=== PATIENT | female | born 1955 | race Caucasian/White ===

== ENCOUNTER 2020-04-27 17:03 | Inpatient (IN) | payer OTHER ==
[2020-04-27] MEDS ORDERED: ACETAMINOPHEN 1000 MG/100 ML VIAL (NON FORMULARY) IVPB ONE (19:48)
[2020-04-27] MEDS ORDERED: FAMOTIDINE 20 MG/50 ML IVPB 20 MG/50 ML MG IVPB ONE ×2 (19:48→20:32)
[2020-04-27] MEDS ORDERED: MAG HYDROX/AL HYDROX/SIMETH 30 ML UNIT-DOSE CUP PO ONE (19:48)
[2020-04-27] MEDS ORDERED: ONDANSETRON 4 MG/2 ML VIAL IVPUSH ONE (19:48)
[2020-04-27] MEDS ORDERED: DEXAMETHASONE SOD PHOSPHATE 4 MG/1 ML VIAL IVPUSH ONE (19:53)
[2020-04-27] MEDS ORDERED: SODIUM CHLORIDE 0.9% 500 ML INFUS.BAG IV ONE (19:53)
[2020-04-27 20:12] LABS: BASO % 0.2 % (0-2.0); HEMATOCRIT 33.1 % (32.4-45.2); HEMOGLOBIN 10.5 GM/dL (10.7-15.3); LYMPH % 19.8 % (8-40); MCH 25.7 pg (25.7-33.7); MCHC 31.6 g/dl (32.0-36.0); MEAN CELL VOLUME 81.3 fl (80-96); MEAN PLT VOLUME 9.5 fl (7.5-11.1); MONO % 7.2 % (3.8-10.2); NEUT % 72.8 % (42.8-82.8); PLATELET COUNT 144 K/MM3 (134-434); RBC 4.08 M/mm3 (3.60-5.2); RDW 14.9 % (11.6-15.6); WHITE BLOOD COUNT 5.3 K/mm3 (4.0-10.0)
[2020-04-27 20:22] LABS: CHLORIDE 105 mmol/L (98-107); POTASSIUM 3.4 mmol/L (3.5-5.1); SODIUM 139 mmol/L (136-145)
[2020-04-27 20:23] LABS: CALCIUM 8.6 mg/dL (8.5-10.1)
[2020-04-27 20:24] LABS: ALBUMIN 3.1 g/dl (3.4-5.0); ANION GAP 7 MMOL/L (8-16); BLOOD UREA NITROGEN 23.8 mg/dL (7-18); CO2 26 mmol/L (21-32)
[2020-04-27 20:26] LABS: BILIRUBIN,DIRECT 0.1 mg/dL (0.0-0.2)
[2020-04-27 20:28] LABS: BILIRUBIN,TOTAL 0.1 mg/dL (0.2-1); GLUCOSE,RANDOM 101 mg/dL (74-106); INR 1.15 (0.83-1.09); PROTHROMBIN TIME (PATIENT) 13.9 SEC (9.7-13.0); SGOT/AST 43 U/L (15-37); SGPT/ALT 31 U/L (13-61)
[2020-04-27 20:29] LABS: TOT PROT 6.8 g/dl (6.4-8.2)
[2020-04-27 20:31] LABS: ALK PHOS 70 U/L (45-117); CREATININE 2.2 mg/dL (0.55-1.3)
[2020-04-27] MEDS ORDERED: MAG HYDROX/AL HYDROX/SIMETH 30 ML UNIT-DOSE CUP ONE (20:31)
[2020-04-27] MEDS ORDERED: ACETAMINOPHEN INJECTION 100 ML IVPB ONE (20:32)
[2020-04-27 20:33] LABS: ACTIVATED PTT 31.4 SECONDS (25.2-36.5)
[2020-04-27] MEDS ORDERED: ONDANSETRON 4 MG/2 ML VIAL ONE (20:33)
[2020-04-27] MEDS ORDERED: DEXAMETHASONE SOD PHOSPHATE 10 MG/1 ML VIAL ONE (20:33)
[2020-04-27] MEDS ORDERED: POTASSIUM CHLORIDE TABS 20 MEQ TABLET.ER (FP) PO ONE ×2 (20:41→20:52)
[2020-04-27 20:49] LABS: LDH 384 U/L (84-246)
[2020-04-27 21:57] LABS: VENOUS BASE EXCESS -3.5 mmol/L (-2-2); VENOUS PCO2 35.5 mmHg (38-52); VENOUS PH 7.388 (7.310-7.410)
[2020-04-27] MEDS ORDERED: SODIUM CHLORIDE 1,000 ML IV SCH (23:30)
[2020-04-27] MEDS ORDERED: ALBUTEROL SO4 HFA INHALER IH PRN (23:40)
[2020-04-27] MEDS ORDERED: MAG HYDROX/AL HYDROX/SIMETH 30 ML UNIT-DOSE CUP PO PRN (23:41)
[2020-04-28] MEDS ORDERED: KCL 10 MEQ IVPB 10 MEQ/100 ML INFUS.BAG IVPB ONE ×2 (01:38→05:59)
[2020-04-28] MEDS ORDERED: ASCORBIC ACID 500 MG TABLET (FP) ONE (01:39)
[2020-04-28] MEDS: ASCORBIC ACID 500 MG TABLET (FP) PO SCH ×3 (01:58→21:49)
[2020-04-28] MEDS: KCL 10 MEQ IVPB 10 MEQ/100 ML INFUS.BAG IVPB SCH ×3 (01:58→11:53)
[2020-04-28] MEDS ORDERED: HEPARIN NA (PORCINE) 5,000 UNITS/ML 1ML VIAL ONE (02:18)
[2020-04-28] MEDS: HEPARIN NA (PORCINE) 5,000 UNITS/ML 1ML VIAL SQ SCH ×3 (02:24→17:44)
[2020-04-28 07:59] LABS: BASO % 0.2 % (0-2.0); HEMATOCRIT 31.4 % (32.4-45.2); LYMPH % 17.5 % (8-40); MCHC 31.9 g/dl (32.0-36.0); MEAN CELL VOLUME 81.6 fl (80-96); MEAN PLT VOLUME 9.8 fl (7.5-11.1); NEUT % 78.3 % (42.8-82.8); PLATELET COUNT 138 K/MM3 (134-434); RBC 3.85 M/mm3 (3.60-5.2); RDW 15.2 % (11.6-15.6); WHITE BLOOD COUNT 3.9 K/mm3 (4.0-10.0)
[2020-04-28 08:20] LABS: POTASSIUM 3.7 mmol/L (3.5-5.1)
[2020-04-28 08:32] LABS: ALBUMIN 2.8 g/dl (3.4-5.0); BLOOD UREA NITROGEN 28.5 mg/dL (7-18); CREATININE 1.8 mg/dL (0.55-1.3)
[2020-04-28 08:33] LABS: PHOSPHOROUS 4.6 mg/dL (2.5-4.9)
[2020-04-28 08:34] LABS: BILIRUBIN,TOTAL 0.5 mg/dL (0.2-1); TOT PROT 6.2 g/dl (6.4-8.2)
[2020-04-28 08:36] LABS: MAGNESIUM 1.6 mg/dL (1.8-2.4)
[2020-04-28] MEDS ORDERED: ACETAMINOPHEN 325 MG TABLET (FP) PO PRN (09:50)
[2020-04-28] MEDS ORDERED: guaiFENesin 200 MG/10 ML 10 ML UNIT-DOSE CUPS PO PRN (09:51)
[2020-04-28] MEDS ORDERED: guaiFENesin/CODEINE 10 ML UNIT-DOSE CUPS PO PRN (09:59)
[2020-04-28] MEDS: DEXAMETHASONE SOD PHOSPHATE 4 MG/1 ML VIAL IVPUSH SCH (11:55)
[2020-04-28] MEDS: ZINC SULFATE 220 MG CAPSULE (FP) PO SCH (11:56)
[2020-04-28] MEDS: FAMOTIDINE 20 MG TABLET PO SCH ×2 (11:56→21:49)
[2020-04-28] MEDS: guaiFENesin/CODEINE 5 ML UNIT-DOSE CUPS PO PRN ×3 (11:56→23:41)
[2020-04-28] MEDS: CHOLECALCIFEROL (VIT D3) 400 UNIT (10 MCG) TABLET PO SCH (11:56)
[2020-04-28] MEDS: INSULIN SLIDING SCALE (NOVOLOG) 1 VIAL SQ SCH ×4 (12:19→22:11)
[2020-04-28] MEDS ORDERED: LACTATED RINGERS SOLUTION 1,000 ML/1,000 ML INFUS.BAG IV SCH (14:00)
[2020-04-28] MEDS ORDERED: INSULIN (NOVOLOG) ASPART 100 UNITS/ML 10ML VIAL ONE (21:50)
[2020-04-28] MEDS ORDERED: MELATONIN 5 MG TABLETS PO ONE (23:59)
[2020-04-29] MEDS: HEPARIN NA (PORCINE) 5,000 UNITS/ML 1ML VIAL SQ SCH ×2 (02:07→11:18)
[2020-04-29 03:57] LABS: EPI CELLS 9 /uL (0-25.1); HYALINE CASTS 1 /uL (0-3.1); URINE APPEARANCE CLEAR; URINE BACTERIA 1114 /uL (0-1359); URINE BILIRUBIN NEGATIVE (NEGATIVE); URINE COLOR YELLOW; URINE GLUCOSE (UA) NEGATIVE (NEGATIVE); URINE KETONE NEGATIVE (NEGATIVE); URINE LEUK ESTERASE NEGATIVE (NEGATIVE); URINE NITRITE NEGATIVE (NEGATIVE); URINE PROTEIN TRACE (NEGATIVE); URINE UROBILINOGEN 0.2 mg/dL (0.2-1.0); URINE WBC 9 /uL (0-25.8)
[2020-04-29 04:37] LABS: URINE RBC 33 /uL (0-23.9)
[2020-04-29] MEDS: guaiFENesin/CODEINE 5 ML UNIT-DOSE CUPS PO PRN ×2 (05:16→11:19)
[2020-04-29] MEDS: INSULIN SLIDING SCALE (NOVOLOG) 1 VIAL SQ SCH ×4 (06:11→21:00)
[2020-04-29 09:43] LABS: BASO % 0.2 % (0-2.0); HEMATOCRIT 30.3 % (32.4-45.2); HEMOGLOBIN 9.7 GM/dL (10.7-15.3); LYMPH % 10.7 % (8-40); MCH 25.8 pg (25.7-33.7); MCHC 31.8 g/dl (32.0-36.0); MONO % 3.5 % (3.8-10.2); NEUT % 85.6 % (42.8-82.8); PLATELET COUNT 158 K/MM3 (134-434); RBC 3.75 M/mm3 (3.60-5.2); WHITE BLOOD COUNT 7.7 K/mm3 (4.0-10.0)
[2020-04-29 09:53] LABS: POTASSIUM 3.7 mmol/L (3.5-5.1)
[2020-04-29 10:00] LABS: CALCIUM 7.9 mg/dL (8.5-10.1)
[2020-04-29 10:01] LABS: ALBUMIN 2.7 g/dl (3.4-5.0); BLOOD UREA NITROGEN 24.3 mg/dL (7-18)
[2020-04-29 10:02] LABS: MAGNESIUM 1.2 mg/dL (1.8-2.4)
[2020-04-29 10:04] LABS: BILIRUBIN,TOTAL 0.3 mg/dL (0.2-1); CREATININE 1.3 mg/dL (0.55-1.3); PHOSPHOROUS 1.7 mg/dL (2.5-4.9); TOT PROT 5.8 g/dl (6.4-8.2)
[2020-04-29] MEDS: ZINC SULFATE 220 MG CAPSULE (FP) PO SCH (11:18)
[2020-04-29] MEDS: FAMOTIDINE 20 MG TABLET PO SCH ×2 (11:18→20:59)
[2020-04-29] MEDS: ASCORBIC ACID 500 MG TABLET (FP) PO SCH ×2 (11:18→20:59)
[2020-04-29] MEDS: CHOLECALCIFEROL (VIT D3) 400 UNIT (10 MCG) TABLET PO SCH (11:18)
[2020-04-29] MEDS: DEXAMETHASONE SOD PHOSPHATE 4 MG/1 ML VIAL IVPUSH SCH (11:18)
[2020-04-29] MEDS ORDERED: MAGNESIUM SULF 50% (8.12 MEQ/2 ML-1 GM VIAL) IVPB ONE (11:22)
[2020-04-29] MEDS: guaiFENesin/CODEINE 5 ML UNIT-DOSE CUPS PO SCH ×2 (11:39→20:59)
[2020-04-29] MEDS: ENOXAPARIN NA (PORCINE) 40 MG/0.4 ML DISP.SYRIN SQ SCH (11:39)
[2020-04-29] MEDS: NAPH,MB-DB/K PH,MBDB POWDER PACKET PO SCH ×2 (11:45→20:59)
[2020-04-29] MEDS ORDERED: REMDESIVIR 200 MG in SODIUM CHLORIDE 210 ML IVPB ONE (12:30)
[2020-04-29] MEDS: ACETAMINOPHEN 325 MG TABLET (FP) PO PRN ×2 (14:32→20:48)
[2020-04-29] MEDS: MELATONIN 5 MG TABLETS PO SCH (20:59)
[2020-04-30] MEDS: guaiFENesin/CODEINE 5 ML UNIT-DOSE CUPS PO SCH ×3 (06:11→21:24)
[2020-04-30] MEDS: INSULIN SLIDING SCALE (NOVOLOG) 1 VIAL SQ SCH ×5 (06:12→21:23)
[2020-04-30] MEDS: DEXAMETHASONE SOD PHOSPHATE 4 MG/1 ML VIAL IVPUSH SCH (09:37)
[2020-04-30] MEDS: NAPH,MB-DB/K PH,MBDB POWDER PACKET PO SCH ×2 (09:38→21:24)
[2020-04-30] MEDS: ASCORBIC ACID 500 MG TABLET (FP) PO SCH ×2 (09:38→21:25)
[2020-04-30] MEDS: ZINC SULFATE 220 MG CAPSULE (FP) PO SCH (09:38)
[2020-04-30] MEDS: ENOXAPARIN NA (PORCINE) 40 MG/0.4 ML DISP.SYRIN SQ SCH (09:38)
[2020-04-30] MEDS: CHOLECALCIFEROL (VIT D3) 400 UNIT (10 MCG) TABLET PO SCH (09:38)
[2020-04-30] MEDS: FAMOTIDINE 20 MG TABLET PO SCH ×2 (09:38→21:25)
[2020-04-30] MEDS ORDERED: ONDANSETRON 4 MG/2 ML VIAL IVPUSH ONE (11:30)
[2020-04-30] MEDS: REMDESIVIR 100 MG in SODIUM CHLORIDE 230 ML IVPB SCH (11:57)
[2020-04-30 12:51] LABS: BASO % 0.1 % (0-2.0); HEMATOCRIT 29.7 % (32.4-45.2); HEMOGLOBIN 9.7 GM/dL (10.7-15.3); LYMPH % 6.2 % (8-40); MCH 26.3 pg (25.7-33.7); MCHC 32.8 g/dl (32.0-36.0); MEAN CELL VOLUME 80.1 fl (80-96); MEAN PLT VOLUME 10.3 fl (7.5-11.1); MONO % 3.7 % (3.8-10.2); PLATELET COUNT 177 K/MM3 (134-434); RBC 3.71 M/mm3 (3.60-5.2); RDW 14.8 % (11.6-15.6); WHITE BLOOD COUNT 8.2 K/mm3 (4.0-10.0)
[2020-04-30 13:07] LABS: POTASSIUM 4.1 mmol/L (3.5-5.1)
[2020-04-30 13:09] LABS: ALBUMIN 2.4 g/dl (3.4-5.0); CALCIUM 7.8 mg/dL (8.5-10.1)
[2020-04-30 13:10] LABS: BLOOD UREA NITROGEN 22.6 mg/dL (7-18); MAGNESIUM 1.7 mg/dL (1.8-2.4)
[2020-04-30 13:13] LABS: PHOSPHOROUS 2.6 mg/dL (2.5-4.9)
[2020-04-30 13:14] LABS: BILIRUBIN,TOTAL 0.2 mg/dL (0.2-1); TOT PROT 5.9 g/dl (6.4-8.2)
[2020-04-30] MEDS ORDERED: MAGNESIUM SULF 50% (8.12 MEQ/2 ML-1 GM VIAL) IVPB ONE (13:26)
[2020-04-30] MEDS ORDERED: MAGNESIUM OXIDE 400 MG TABLET (FP) PO ONE (14:15)
[2020-04-30] MEDS: MELATONIN 5 MG TABLETS PO SCH (21:25)
[2020-04-30] MEDS: ACETAMINOPHEN WITH CODEINE 300MG/30MG TABLET PO PRN (21:29)
[2020-05-01] MEDS: INSULIN SLIDING SCALE (NOVOLOG) 1 VIAL SQ SCH ×4 (06:53→21:02)
[2020-05-01] MEDS: guaiFENesin/CODEINE 5 ML UNIT-DOSE CUPS PO SCH (06:54)
[2020-05-01 09:46] LABS: BASO % 0.1 % (0-2.0); HEMATOCRIT 32.3 % (32.4-45.2); HEMOGLOBIN 10.5 GM/dL (10.7-15.3); LYMPH % 8.2 % (8-40); MCH 26.1 pg (25.7-33.7); MCHC 32.7 g/dl (32.0-36.0); MEAN CELL VOLUME 79.7 fl (80-96); MEAN PLT VOLUME 9.4 fl (7.5-11.1); MONO % 6.4 % (3.8-10.2); NEUT % 85.3 % (42.8-82.8); PLATELET COUNT 210 K/MM3 (134-434); RBC 4.05 M/mm3 (3.60-5.2); RDW 15.2 % (11.6-15.6); WHITE BLOOD COUNT 8.6 K/mm3 (4.0-10.0)
[2020-05-01] MEDS: ENOXAPARIN NA (PORCINE) 40 MG/0.4 ML DISP.SYRIN SQ SCH (10:18)
[2020-05-01] MEDS: DEXAMETHASONE SOD PHOSPHATE 4 MG/1 ML VIAL IVPUSH SCH (10:18)
[2020-05-01] MEDS: ZINC SULFATE 220 MG CAPSULE (FP) PO SCH (10:19)
[2020-05-01] MEDS: NAPH,MB-DB/K PH,MBDB POWDER PACKET PO SCH ×3 (10:19→21:03)
[2020-05-01] MEDS: ACETAMINOPHEN WITH CODEINE 300MG/30MG TABLET PO PRN ×2 (10:20→16:34)
[2020-05-01] MEDS: CHOLECALCIFEROL (VIT D3) 400 UNIT (10 MCG) TABLET PO SCH (10:21)
[2020-05-01] MEDS: ASCORBIC ACID 500 MG TABLET (FP) PO SCH ×3 (10:21→21:04)
[2020-05-01] MEDS: FAMOTIDINE 20 MG TABLET PO SCH ×2 (10:21→21:03)
[2020-05-01 10:35] LABS: CALCIUM 8.5 mg/dL (8.5-10.1)
[2020-05-01 10:37] LABS: ALBUMIN 2.5 g/dl (3.4-5.0); BLOOD UREA NITROGEN 25.2 mg/dL (7-18); MAGNESIUM 1.8 mg/dL (1.8-2.4)
[2020-05-01 10:39] LABS: CREATININE 1.1 mg/dL (0.55-1.3); PHOSPHOROUS 2.8 mg/dL (2.5-4.9)
[2020-05-01 10:40] LABS: BILIRUBIN,TOTAL 0.4 mg/dL (0.2-1)
[2020-05-01] MEDS: REMDESIVIR 100 MG in SODIUM CHLORIDE 230 ML IVPB SCH (14:18)
[2020-05-01] MEDS: MELATONIN 5 MG TABLETS PO SCH ×2 (20:54→21:03)
[2020-05-01] MEDS: ATORVASTATIN CA 20 MG TABLET (FP) PO SCH ×2 (20:54→21:03)
[2020-05-02] MEDS: INSULIN SLIDING SCALE (NOVOLOG) 1 VIAL SQ SCH ×4 (06:08→21:49)
[2020-05-02] MEDS: FAMOTIDINE 20 MG TABLET PO SCH ×2 (09:07→21:51)
[2020-05-02] MEDS: ZINC SULFATE 220 MG CAPSULE (FP) PO SCH (09:07)
[2020-05-02] MEDS: NAPH,MB-DB/K PH,MBDB POWDER PACKET PO SCH ×2 (09:07→21:49)
[2020-05-02 09:08] LABS: BASO % 0.1 % (0-2.0); HEMATOCRIT 33.8 % (32.4-45.2); LYMPH % 9.7 % (8-40); MCHC 32.6 g/dl (32.0-36.0); MEAN CELL VOLUME 79.7 fl (80-96); MEAN PLT VOLUME 10.1 fl (7.5-11.1); MONO % 8.8 % (3.8-10.2); NEUT % 81.4 % (42.8-82.8); PLATELET COUNT 230 K/MM3 (134-434); RBC 4.24 M/mm3 (3.60-5.2); WHITE BLOOD COUNT 7.5 K/mm3 (4.0-10.0)
[2020-05-02] MEDS: ASCORBIC ACID 500 MG TABLET (FP) PO SCH ×2 (09:08→21:49)
[2020-05-02] MEDS: ENOXAPARIN NA (PORCINE) 40 MG/0.4 ML DISP.SYRIN SQ SCH (09:08)
[2020-05-02] MEDS: guaiFENesin 600 MG TABLET.ER (FP) PO SCH ×2 (09:08→21:49)
[2020-05-02] MEDS: DEXAMETHASONE SOD PHOSPHATE 4 MG/1 ML VIAL IVPUSH SCH (09:08)
[2020-05-02 09:32] LABS: POTASSIUM 4.1 mmol/L (3.5-5.1)
[2020-05-02 10:03] LABS: ALBUMIN 2.6 g/dl (3.4-5.0); CALCIUM 8.9 mg/dL (8.5-10.1)
[2020-05-02 10:05] LABS: MAGNESIUM 1.7 mg/dL (1.8-2.4)
[2020-05-02 10:07] LABS: BILIRUBIN,TOTAL 0.7 mg/dL (0.2-1); PHOSPHOROUS 3.1 mg/dL (2.5-4.9)
[2020-05-02] MEDS ORDERED: MAGNESIUM OXIDE 400 MG TABLET (FP) PO ONE (11:13)
[2020-05-02] MEDS: CHOLECALCIFEROL (VIT D3) 400 UNIT (10 MCG) TABLET PO SCH (13:13)
[2020-05-02] MEDS: REMDESIVIR 100 MG in SODIUM CHLORIDE 230 ML IVPB SCH (13:13)
[2020-05-02] MEDS: ACETAMINOPHEN WITH CODEINE 300MG/30MG TABLET PO PRN ×2 (13:19→20:18)
[2020-05-02] MEDS: ATORVASTATIN CA 20 MG TABLET (FP) PO SCH (21:49)
[2020-05-02] MEDS: MELATONIN 5 MG TABLETS PO SCH (21:49)
[2020-05-03] MEDS: ACETAMINOPHEN WITH CODEINE 300MG/30MG TABLET PO PRN (06:44)
[2020-05-03] MEDS: INSULIN SLIDING SCALE (NOVOLOG) 1 VIAL SQ SCH ×4 (06:44→21:23)
[2020-05-03 08:52] LABS: BASO % 0.1 % (0-2.0); EOS % 0.1 % (0-4.5); HEMATOCRIT 34.6 % (32.4-45.2); HEMOGLOBIN 11.2 GM/dL (10.7-15.3); LYMPH % 12.5 % (8-40); MCHC 32.4 g/dl (32.0-36.0); MEAN CELL VOLUME 80.3 fl (80-96); MEAN PLT VOLUME 9.5 fl (7.5-11.1); MONO % 9.4 % (3.8-10.2); NEUT % 77.9 % (42.8-82.8); PLATELET COUNT 243 K/MM3 (134-434); RBC 4.31 M/mm3 (3.60-5.2); RDW 14.8 % (11.6-15.6); WHITE BLOOD COUNT 9.3 K/mm3 (4.0-10.0)
[2020-05-03 08:56] LABS: POTASSIUM 4.1 mmol/L (3.5-5.1)
[2020-05-03 09:01] LABS: ALBUMIN 2.6 g/dl (3.4-5.0); BLOOD UREA NITROGEN 30.8 mg/dL (7-18); MAGNESIUM 1.6 mg/dL (1.8-2.4)
[2020-05-03 09:03] LABS: CREATININE 1.1 mg/dL (0.55-1.3)
[2020-05-03 09:05] LABS: BILIRUBIN,TOTAL 0.7 mg/dL (0.2-1); PHOSPHOROUS 3.3 mg/dL (2.5-4.9)
[2020-05-03 09:07] LABS: TOT PROT 6.1 g/dl (6.4-8.2)
[2020-05-03] MEDS: ENOXAPARIN NA (PORCINE) 40 MG/0.4 ML DISP.SYRIN SQ SCH (09:33)
[2020-05-03] MEDS: DEXAMETHASONE SOD PHOSPHATE 4 MG/1 ML VIAL IVPUSH SCH (09:33)
[2020-05-03] MEDS: ASCORBIC ACID 500 MG TABLET (FP) PO SCH ×2 (09:34→21:23)
[2020-05-03] MEDS: ZINC SULFATE 220 MG CAPSULE (FP) PO SCH (09:34)
[2020-05-03] MEDS: NAPH,MB-DB/K PH,MBDB POWDER PACKET PO SCH ×2 (09:34→21:23)
[2020-05-03] MEDS: CHOLECALCIFEROL (VIT D3) 400 UNIT (10 MCG) TABLET PO SCH (09:34)
[2020-05-03] MEDS: FAMOTIDINE 20 MG TABLET PO SCH ×2 (09:34→21:23)
[2020-05-03] MEDS: guaiFENesin 600 MG TABLET.ER (FP) PO SCH ×2 (09:34→21:23)
[2020-05-03] MEDS: REMDESIVIR 100 MG in SODIUM CHLORIDE 230 ML IVPB SCH (12:53)
[2020-05-03] MEDS: POLYETHYLENE GLYCOL 3350 119 GM BTL PO SCH (16:09)
[2020-05-03] MEDS: MAGNESIUM HYDROX 2400MG/30ML ORAL SUSPENSION 30 ML CUP PO SCH (16:09)
[2020-05-03] MEDS: MELATONIN 5 MG TABLETS PO SCH (21:23)
[2020-05-03] MEDS: ATORVASTATIN CA 20 MG TABLET (FP) PO SCH (21:23)
[2020-05-04] MEDS: INSULIN SLIDING SCALE (NOVOLOG) 1 VIAL SQ SCH ×4 (06:58→22:10)
[2020-05-04 09:32] LABS: BASO % 0.2 % (0-2.0); EOS % 0.1 % (0-4.5); HEMATOCRIT 34.9 % (32.4-45.2); HEMOGLOBIN 11.2 GM/dL (10.7-15.3); LYMPH % 8.4 % (8-40); MCH 25.8 pg (25.7-33.7); MCHC 32.1 g/dl (32.0-36.0); MEAN CELL VOLUME 80.3 fl (80-96); MEAN PLT VOLUME 9.4 fl (7.5-11.1); MONO % 8.3 % (3.8-10.2); PLATELET COUNT 252 K/MM3 (134-434); RBC 4.34 M/mm3 (3.60-5.2); RDW 14.9 % (11.6-15.6); WHITE BLOOD COUNT 11.6 K/mm3 (4.0-10.0)
[2020-05-04 09:59] LABS: POTASSIUM 3.9 mmol/L (3.5-5.1)
[2020-05-04 10:04] LABS: CALCIUM 8.8 mg/dL (8.5-10.1)
[2020-05-04 10:05] LABS: ALBUMIN 2.7 g/dl (3.4-5.0); BLOOD UREA NITROGEN 34.8 mg/dL (7-18); MAGNESIUM 1.7 mg/dL (1.8-2.4)
[2020-05-04 10:08] LABS: BILIRUBIN,TOTAL 0.2 mg/dL (0.2-1); CREATININE 1.1 mg/dL (0.55-1.3); PHOSPHOROUS 3.3 mg/dL (2.5-4.9)
[2020-05-04 10:09] LABS: TOT PROT 6.4 g/dl (6.4-8.2)
[2020-05-04] MEDS: ZINC SULFATE 220 MG CAPSULE (FP) PO SCH (10:12)
[2020-05-04] MEDS: ASCORBIC ACID 500 MG TABLET (FP) PO SCH ×2 (10:13→22:11)
[2020-05-04] MEDS: ENOXAPARIN NA (PORCINE) 40 MG/0.4 ML DISP.SYRIN SQ SCH (10:13)
[2020-05-04] MEDS: CHOLECALCIFEROL (VIT D3) 400 UNIT (10 MCG) TABLET PO SCH (10:13)
[2020-05-04] MEDS: guaiFENesin 600 MG TABLET.ER (FP) PO SCH ×2 (10:13→22:10)
[2020-05-04] MEDS: FAMOTIDINE 20 MG TABLET PO SCH ×2 (10:13→22:11)
[2020-05-04] MEDS: DEXAMETHASONE SOD PHOSPHATE 4 MG/1 ML VIAL IVPUSH SCH (10:14)
[2020-05-04] MEDS: NAPH,MB-DB/K PH,MBDB POWDER PACKET PO SCH ×3 (10:14→22:11)
[2020-05-04] MEDS: MAGNESIUM HYDROX 2400MG/30ML ORAL SUSPENSION 30 ML CUP PO SCH (10:25)
[2020-05-04] MEDS: POLYETHYLENE GLYCOL 3350 119 GM BTL PO SCH (10:25)
[2020-05-04] MEDS: ATORVASTATIN CA 20 MG TABLET (FP) PO SCH (22:10)
[2020-05-04] MEDS: MELATONIN 5 MG TABLETS PO SCH (22:10)
[2020-05-04] MEDS: ACETAMINOPHEN WITH CODEINE 300MG/30MG TABLET PO PRN (22:11)
[2020-05-05] MEDS: INSULIN SLIDING SCALE (NOVOLOG) 1 VIAL SQ SCH ×4 (06:38→22:09)
[2020-05-05 07:53] LABS: HEMATOCRIT 36.1 % (32.4-45.2); HEMOGLOBIN 11.6 GM/dL (10.7-15.3); LYMPH % 10.5 % (8-40); MCHC 32.1 g/dl (32.0-36.0); MEAN PLT VOLUME 9.6 fl (7.5-11.1); NEUT % 79.7 % (42.8-82.8); PLATELET COUNT 271 K/MM3 (134-434); RBC 4.45 M/mm3 (3.60-5.2); RDW 14.9 % (11.6-15.6); WHITE BLOOD COUNT 9.6 K/mm3 (4.0-10.0)
[2020-05-05 07:54] LABS: BASO % 0.3 % (0-2.0); EOS % 0.1 % (0-4.5); MONO % 9.4 % (3.8-10.2)
[2020-05-05 07:57] LABS: POTASSIUM 4.5 mmol/L (3.5-5.1)
[2020-05-05 08:47] LABS: CALCIUM 9.5 mg/dL (8.5-10.1)
[2020-05-05 08:48] LABS: ALBUMIN 2.8 g/dl (3.4-5.0); BLOOD UREA NITROGEN 41.2 mg/dL (7-18); MAGNESIUM 1.6 mg/dL (1.8-2.4)
[2020-05-05 08:50] LABS: CREATININE 1.2 mg/dL (0.55-1.3)
[2020-05-05 08:51] LABS: PHOSPHOROUS 3.4 mg/dL (2.5-4.9)
[2020-05-05 08:52] LABS: BILIRUBIN,TOTAL 0.5 mg/dL (0.2-1); TOT PROT 6.6 g/dl (6.4-8.2)
[2020-05-05] MEDS ORDERED: MAGNESIUM SULF 50% (8.12 MEQ/2 ML-1 GM VIAL) IVPB ONE (10:32)
[2020-05-05] MEDS: MAGNESIUM SULF 50% (8.12 MEQ/2 ML-1 GM VIAL) IVPB ONE ×2 (10:37→11:44)
[2020-05-05] MEDS: DEXAMETHASONE SOD PHOSPHATE 4 MG/1 ML VIAL IVPUSH SCH ×2 (10:37→11:44)
[2020-05-05] MEDS: ENOXAPARIN NA (PORCINE) 40 MG/0.4 ML DISP.SYRIN SQ SCH (10:37)
[2020-05-05] MEDS: NAPH,MB-DB/K PH,MBDB POWDER PACKET PO SCH ×3 (10:38→22:12)
[2020-05-05] MEDS: ASCORBIC ACID 500 MG TABLET (FP) PO SCH ×2 (10:38→22:08)
[2020-05-05] MEDS: ZINC SULFATE 220 MG CAPSULE (FP) PO SCH (10:38)
[2020-05-05] MEDS: POLYETHYLENE GLYCOL 3350 119 GM BTL PO SCH (10:40)
[2020-05-05 12:42] VITALS: BMI 30.6
[2020-05-05] MEDS: guaiFENesin 600 MG TABLET.ER (FP) PO SCH ×2 (12:44→22:10)
[2020-05-05] MEDS: MAGNESIUM HYDROX 2400MG/30ML ORAL SUSPENSION 30 ML CUP PO SCH (12:44)
[2020-05-05] MEDS: FAMOTIDINE 20 MG TABLET PO SCH ×2 (12:45→22:08)
[2020-05-05] MEDS: CHOLECALCIFEROL (VIT D3) 400 UNIT (10 MCG) TABLET PO SCH (12:45)
[2020-05-05] MEDS: ACETAMINOPHEN WITH CODEINE 300MG/30MG TABLET PO PRN (13:02)
[2020-05-05] MEDS ORDERED: SODIUM CHLORIDE 0.45% 1,000 ML IV SCH (17:45)
[2020-05-05] MEDS: ATORVASTATIN CA 20 MG TABLET (FP) PO SCH (22:07)
[2020-05-05] MEDS: MELATONIN 5 MG TABLETS PO SCH (22:08)
[2020-05-06] MEDS: ACETAMINOPHEN WITH CODEINE 300MG/30MG TABLET PO PRN ×2 (04:26→22:52)
[2020-05-06] MEDS: INSULIN SLIDING SCALE (NOVOLOG) 1 VIAL SQ SCH ×3 (06:08→18:30)
[2020-05-06 09:09] LABS: BASO % 0.2 % (0-2.0); EOS % 0.4 % (0-4.5); HEMATOCRIT 34.6 % (32.4-45.2); HEMOGLOBIN 11.1 GM/dL (10.7-15.3); LYMPH % 9.2 % (8-40); MCH 26.1 pg (25.7-33.7); MCHC 32.2 g/dl (32.0-36.0); MEAN CELL VOLUME 80.9 fl (80-96); MEAN PLT VOLUME 9.8 fl (7.5-11.1); MONO % 9.7 % (3.8-10.2); NEUT % 80.5 % (42.8-82.8); PLATELET COUNT 222 K/MM3 (134-434); RBC 4.28 M/mm3 (3.60-5.2); RDW 14.9 % (11.6-15.6); WHITE BLOOD COUNT 10.9 K/mm3 (4.0-10.0)
[2020-05-06] MEDS: MAGNESIUM HYDROX 2400MG/30ML ORAL SUSPENSION 30 ML CUP PO SCH (09:50)
[2020-05-06] MEDS: DEXAMETHASONE SOD PHOSPHATE 4 MG/1 ML VIAL IVPUSH SCH (09:50)
[2020-05-06] MEDS: POLYETHYLENE GLYCOL 3350 119 GM BTL PO SCH (09:50)
[2020-05-06] MEDS: ENOXAPARIN NA (PORCINE) 40 MG/0.4 ML DISP.SYRIN SQ SCH (09:50)
[2020-05-06] MEDS: CHOLECALCIFEROL (VIT D3) 400 UNIT (10 MCG) TABLET PO SCH (09:51)
[2020-05-06] MEDS: guaiFENesin 600 MG TABLET.ER (FP) PO SCH ×2 (09:51→22:39)
[2020-05-06] MEDS: ZINC SULFATE 220 MG CAPSULE (FP) PO SCH (09:51)
[2020-05-06] MEDS: ASCORBIC ACID 500 MG TABLET (FP) PO SCH ×2 (09:51→22:39)
[2020-05-06] MEDS: NAPH,MB-DB/K PH,MBDB POWDER PACKET PO SCH ×2 (09:52→22:39)
[2020-05-06] MEDS: FAMOTIDINE 20 MG TABLET PO SCH ×2 (09:52→22:40)
[2020-05-06 13:33] LABS: POTASSIUM 4.1 mmol/L (3.5-5.1)
[2020-05-06 13:35] LABS: ALBUMIN 2.8 g/dl (3.4-5.0); CALCIUM 8.8 mg/dL (8.5-10.1)
[2020-05-06 13:36] LABS: BLOOD UREA NITROGEN 41.4 mg/dL (7-18); MAGNESIUM 1.7 mg/dL (1.8-2.4)
[2020-05-06 13:38] LABS: PHOSPHOROUS 2.9 mg/dL (2.5-4.9)
[2020-05-06 13:39] LABS: CREATININE 1.2 mg/dL (0.55-1.3)
[2020-05-06 13:40] LABS: BILIRUBIN,TOTAL 0.4 mg/dL (0.2-1); TOT PROT 6.4 g/dl (6.4-8.2)
[2020-05-06] MEDS: ATORVASTATIN CA 20 MG TABLET (FP) PO SCH (22:39)
[2020-05-06] MEDS: MELATONIN 5 MG TABLETS PO SCH (22:39)
[2020-05-07] MEDS: INSULIN SLIDING SCALE (NOVOLOG) 1 VIAL SQ SCH ×4 (00:21→16:47)
[2020-05-07 08:09] LABS: BASO % 0.3 % (0-2.0); EOS % 0.3 % (0-4.5); HEMATOCRIT 35.8 % (32.4-45.2); HEMOGLOBIN 11.2 GM/dL (10.7-15.3); LYMPH % 14.7 % (8-40); MCH 25.2 pg (25.7-33.7); MCHC 31.2 g/dl (32.0-36.0); MEAN CELL VOLUME 80.6 fl (80-96); MEAN PLT VOLUME 9.7 fl (7.5-11.1); MONO % 10.1 % (3.8-10.2); NEUT % 74.6 % (42.8-82.8); PLATELET COUNT 262 K/MM3 (134-434); RBC 4.44 M/mm3 (3.60-5.2); RDW 14.6 % (11.6-15.6)
[2020-05-07 08:45] LABS: ALBUMIN 2.7 g/dl (3.4-5.0); CALCIUM 8.8 mg/dL (8.5-10.1)
[2020-05-07 08:46] LABS: BLOOD UREA NITROGEN 33.1 mg/dL (7-18); MAGNESIUM 1.8 mg/dL (1.8-2.4)
[2020-05-07 08:49] LABS: CREATININE 1.1 mg/dL (0.55-1.3); PHOSPHOROUS 2.8 mg/dL (2.5-4.9)
[2020-05-07 08:50] LABS: BILIRUBIN,TOTAL 0.3 mg/dL (0.2-1); TOT PROT 6.1 g/dl (6.4-8.2)
[2020-05-07] MEDS: NAPH,MB-DB/K PH,MBDB POWDER PACKET PO SCH (09:04)
[2020-05-07] MEDS: ACETAMINOPHEN WITH CODEINE 300MG/30MG TABLET PO PRN (09:04)
[2020-05-07] MEDS: ZINC SULFATE 220 MG CAPSULE (FP) PO SCH (09:04)
[2020-05-07] MEDS: guaiFENesin 600 MG TABLET.ER (FP) PO SCH (09:04)
[2020-05-07] MEDS: MAGNESIUM HYDROX 2400MG/30ML ORAL SUSPENSION 30 ML CUP PO SCH (09:04)
[2020-05-07] MEDS: CHOLECALCIFEROL (VIT D3) 400 UNIT (10 MCG) TABLET PO SCH (09:04)
[2020-05-07] MEDS: ASCORBIC ACID 500 MG TABLET (FP) PO SCH (09:04)
[2020-05-07] MEDS: ENOXAPARIN NA (PORCINE) 40 MG/0.4 ML DISP.SYRIN SQ SCH (09:07)
[2020-05-07] MEDS: FAMOTIDINE 20 MG TABLET PO SCH (09:08)
[2020-05-07] MEDS: POLYETHYLENE GLYCOL 3350 119 GM BTL PO SCH (09:08)
[2020-05-07] MEDS ORDERED: ALBUTEROL SO4 HFA INHALER IH PRN (09:37)
[2020-05-07] MEDS ORDERED: ACETAMINOPHEN WITH CODEINE 300MG/30MG TABLET PO PRN (09:37)
[2020-05-07] MEDS ORDERED: MAG HYDROX/AL HYDROX/SIMETH 30 ML UNIT-DOSE CUP PO PRN (09:37)
[2020-05-07] MEDS ORDERED: NAPH,MB-DB/K PH,MBDB POWDER PACKET PO SCH (10:00)
[2020-05-07] MEDS ORDERED: FAMOTIDINE 20 MG TABLET PO SCH (10:00)
[2020-05-07] MEDS ORDERED: guaiFENesin 600 MG TABLET.ER (FP) PO SCH (10:00)
[2020-05-07] MEDS ORDERED: ASCORBIC ACID 500 MG TABLET (FP) PO SCH (10:00)
[2020-05-07] MEDS ORDERED: ZINC SULFATE 220 MG CAPSULE (FP) PO SCH (10:00)
[2020-05-07] MEDS ORDERED: MAGNESIUM HYDROX 2400MG/30ML ORAL SUSPENSION 30 ML CUP PO SCH (10:00)
[2020-05-07] MEDS ORDERED: CHOLECALCIFEROL (VIT D3) 400 UNIT (10 MCG) TABLET PO SCH (10:00)
[2020-05-07] MEDS ORDERED: ENOXAPARIN NA (PORCINE) 40 MG/0.4 ML DISP.SYRIN SQ SCH (10:00)
[2020-05-07] MEDS ORDERED: POLYETHYLENE GLYCOL 3350 119 GM BTL PO SCH (10:00)
[2020-05-07 11:52] LABS: ANISOCYTOSIS 0; MACROCYTOSIS 0; PLATELET ESTIMATE NORMAL
[2020-05-07 14:17] VITALS: TEMP 98.2
[2020-05-07 15:00] VITALS: BP 114/85; PULSE 95
[2020-05-07] MEDS ORDERED: MELATONIN 5 MG TABLETS PO SCH (22:00)
[2020-05-07] MEDS ORDERED: ATORVASTATIN CA 20 MG TABLET (FP) PO SCH (22:00)
== END 2020-05-07 22:12 | disposition home or self-care (01) | DRG 177 ==
LOC: JER 17:03 → JERBED 19:49 → J6S 04-28 11:32 → J6WEST-2 05-04 19:02
PROVIDERS: ADMIT Internal Medicine; ATTEND Student in an Organized Health Care Education/Training Program
PROC: XW13325 Transfusion of Convalescent Plasma (Nonautologous) into Peripheral Vein, Percutaneous Approach, New Technology Group 5 (ICD-10-PCS; principal; 2020-04-28)
PROC: XW033E5 Introduction of Remdesivir Anti-infective into Peripheral Vein, Percutaneous Approach, New Technology Group 5 (ICD-10-PCS; 2020-04-28)
DX: U07.1 COVID-19 (principal); J96.01 Acute respiratory failure with hypoxia; J12.82 Pneumonia due to coronavirus disease 2019; N17.9 Acute kidney failure, unspecified; N13.30 Unspecified hydronephrosis; I10 Essential (primary) hypertension; I50.9 Heart failure, unspecified; E87.6 Hypokalemia; E11.9 Type 2 diabetes mellitus without complications; N18.9 Chronic kidney disease, unspecified; R00.0 Tachycardia, unspecified; K59.00 Constipation, unspecified; E83.39 Other disorders of phosphorus metabolism; E83.42 Hypomagnesemia; E66.9 Obesity, unspecified; Z68.30 Body mass index [BMI] 30.0-30.9, adult; E86.0 Dehydration; D64.9 Anemia, unspecified
CPT/HCPCS: 36415; 36430; 71045-TC-FY; 71046-TC-FY; 76775-TC; 80053; 81003; 82248; 82436; 82550; 82553; 82565; 82728; 82803; 82962; 83605; 83615; 83735; 84100; 84133; 84300; 84484; 85025; 85379; 85610; 85730; 86140; 86850; 86900; 86901; 93005; 93010; 94761; 97116-GP; 97161-GP; 99285-25; C9399; C9803; J0131; J1644; P9017; U0003